=== PATIENT | male | born 1990 | race Caucasian/White ===

== ENCOUNTER 2023-04-12 05:14 | Emergency (ER) | payer OTHER, SELFPAY ==
--- NOTE | ~2023-04-12 | XR_ITS ---
Right wrist Technique: PA, oblique, lateral, and ulnar deviation views were obtained. Clinical History: Pain Findings: No acute fracture or dislocation is seen. Osseous alignment is anatomic. Joint spaces are p reserved. Soft tissues are unremarkable. Impression: Unremarkable right wrist radiographs. Reviewed, dictated and finalized at location . Impression: Unremarkable right wrist radiographs.
--- NOTE | ~2023-04-12 | XR_ITS ---
Right Hand Technique: PA, oblique, and lateral views were obtained. Clinical History: Injury Findings: No acute fracture or dislocation is seen. Osseous alignment is anatomic. Joint spaces are p reserved. Soft tissues are unremarkable. Impression: Unremarkable right hand. Reviewed, dictated and finalized at location M. Impression: Unremarkable right hand.
[2023-04-12 05:18] VITALS: BP 128/88; PULSE 83; RESP 15; TEMP 36.6; O2SAT 97
--- NOTE | 2023-04-12 05:25 | ED.UPPEXIN ---
HPI - Extremity Injury (Upper) General Chief Complaint: Extremity Injury, Upper Stated Complaint: R wrist injury Time Seen by Provider: 04/12/23 05:21 History of Present Illness HPI narrative: Pt is a 32 yo M presenting with R hand and wrist pain. Pt states his right hand and wrist were crushed between a ladder extension approximately 3 days ago. States he has had pain with lifting and wrist extension since that time. He was at work last night when he noticed his pinky finger felt tingly so he came in for evaluation. Denies pain currently. States it only hurts when he tries to lift things. Denies further complaints. Related Data Home Medications Medication Instructions Recorded Confirmed dextroamphetamine-amphetamine ER PO 04/12/23 30 mg 24hr capsule,extend release escitalopram oxalate 20 mg tablet mg 04/12/23 Allergies Allergy/AdvReac Type Severity Reaction Status Date / Time No Known Allergies Allergy Verified 04/12/23 05:25 Review of Systems Review of Systems: All systems reviewed & are unremarkable except as noted in HPI and below Exam Narrative: GENERAL: Well-appearing, well-nourished, and in no acute distress. HEAD: Normocephalic, atraumatic. EYES: PERRLA and EOMI. ENT: Nares clear, no rhinorrhea or epistaxis. Mucous membranes moist. NECK: Supple. CHEST: o respiratory distress. HEART: Regular rate and rhythm. Normal peripheral pulses. ABDOMEN: nondistended. EXTREMITIES: Normal range of motion. No edema. right wrist with ecchymosis on volar aspect, appears to be several days old; ecchymosis also on dorsal aspect of right hand, cap refill is brisk, distal ROM intact, no sensory deficits SKIN: Warm, dry, no rash. NEURO: No focal deficits. Alert and oriented x3. PSYCH: Normal mood and affect. Course Vital Signs Vital signs: Vital Signs Temperature 98 F 04/12/23 05:18 Pulse Rate 83 04/12/23 05:18 Respiratory Rate 15 04/12/23 05:18 Blood Pressure 128/88 04/12/23 05:18 Pulse Oximetry 97 04/12/23 05:18 Oxygen Delivery Room Air 04/12/23 05:18 Temperature 98 F 04/12/23 05:18 Pulse Rate 90 04/12/23 06:35 Respiratory Rate 15 04/12/23 06:35 Blood Pressure 108/80 04/12/23 06:35 Pulse Oximetry 100 04/12/23 06:35 Oxygen Delivery Room Air 04/12/23 05:18 MDM - Extremity Injury (Upper) MDM Narrative Medical decision making narrative: 32 yo M presenting with right wrist and hand pain. Vitals wnl. Exam remarkable for above. Neurovascularly intact. X-rays show no acute abnormalities. Discussed reassuring imaging with patient. Offered splint for comfort, pt declines. Advised PCP f/u. Appropriate return precautions given. Discharged in stable condition. Differential Diagnosis Differential diagnosis: Likely sprain and strain of wrist, fracture of wrist and fracture of hand Medical Records Attestation: I reviewed the patient's medical records. Imaging Data Radiologist's impression: ITS Impressions Hand X-Ray 04/12/23 06:09 Impression: Unremarkable right hand. Wrist X-Ray 04/12/23 06:09 Impression: Unremarkable right wrist radiographs. Critical Care Time Critical Care Time Critical Care Time: No Discharge Plan Discharge Clinical Impression: Sprain and strain of wrist Patient Disposition: Home, Self-Care Condition: Stable Instructions: Antibiotic Form, Wrist Sprain (ED) Additional Instructions: X-rays today show no broken bones. Please use tylenol and ibuprofen for pain control. Please follow-up with your PCP. If your pain suddenly worsens, you develop numbness or weakness, or other concerning symptoms arise, please return to the ER. Prescriptions: No Action dextroamphetamine-amphetamine 30 mg capsule,extended release 24hr PO escitalopram oxalate 20 mg tablet Follow-up/Referrals: PHYSICIAN NOT ON STAFF,NONSTAFF [Non-Staff] -
[2023-04-12 06:35] VITALS: BP 108/80; PULSE 90; RESP 15; O2SAT 100
== END 2023-04-12 06:36 | disposition home or self-care (01) ==
PROVIDERS: Emergency Provider Emergency Medicine; PCP Physician Assistant
DX: S63.501A Unspecified sprain of right wrist, initial encounter (principal); S66.911A Strain of unspecified muscle, fascia and tendon at wrist and hand level, right hand, initial encounter; W23.0XXA Caught, crushed, jammed, or pinched between moving objects, initial encounter
CPT/HCPCS: 73110; 73130; 99283